=== PATIENT | female | born 1970 | race Caucasian/White ===

== ENCOUNTER → 2017-05-16 | Outpatient (CLI) | payer BC ==
[~2017-05-16] MED LIST: BIOTIN1000 MCG PO; CALCIUM + D 6001 TA1 PO; IMITREX25 MG PO; LEXAPRO10 MG PO; MECLIZINE; MULTIPLE VITAMI1 CAP PO; PHENERGAN 25 TA25 MG PO; VALIUM2 MG PO; VITAMIN B COMPL1 TA1 PO; VITAMIN C500 MG PO; VITAMIN D1000 IU PO; VITAMIN E28000 IU TP
== END ==
LOC: MC.RAD 05-10 13:00
DX: Z12.31 Encounter for screening mammogram for malignant neoplasm of breast (principal)

== ENCOUNTER → 2018-06-14 | Outpatient (CLI) | payer BC | LOC: MC.RAD 13:12 | DX: Z12.31 Encounter for screening mammogram for malignant neoplasm of breast (principal) ==

== ENCOUNTER → 2019-06-27 | Outpatient (CLI) | payer BC | LOC: MC.RAD 13:23 | DX: Z12.31 Encounter for screening mammogram for malignant neoplasm of breast (principal) ==

== ENCOUNTER → 2020-08-21 | Outpatient (CLI) | payer BC | LOC: ZCOL.LAB 16:37 | DX: U07.1 COVID-19 (principal) ==

== ENCOUNTER → 2020-11-19 | Outpatient (CLI) | payer BC | LOC: MC.RAD 11:15 | DX: Z12.31 Encounter for screening mammogram for malignant neoplasm of breast (principal) ==

== ENCOUNTER → 2022-02-01 | Outpatient (CLI) | payer BC | LOC: MC.RAD 12-17 16:45 | DX: Z12.31 Encounter for screening mammogram for malignant neoplasm of breast (principal) ==